=== PATIENT | female | born 1940 | race Caucasian/White ===

== ENCOUNTER 2021-09-02 06:52 | Outpatient (CLI) | payer MEDICARE, SELFPAY ==
--- NOTE | 2021-09-02 07:24 | MR_ITS ---
WS: [id number] MRI LUMBAR SPINE NONCONTRAST HISTORY: WEAKNESS COMPARISON: None available. TECHNIQUE: Sagittal and axial multisequence imaging is submitted. Marked increase in the cervical lordosis and thoracic kyphosis. Very mild anterior wedging of T6, T7, T8 and T9. Advanced degenerative disc disease throughout the cervical and thoracic spines. Mild RIGHT curvature thoracic spine. L4 anterolisthesis by 4 mm. 2 mm retrolisthesis of L1 and L2. No acute fractures or marrow edema. There is extensive degenerative disc disease with bulging and ost eophytosis throughout the lumbar spine with facet joint arthritis at multiple levels. Conus terminates normally at L1-2 disc level. T12-L1: Moderate annular disc bulging and osteophytic ridging. There is also facet joint arthritis. D egenerative changes are resulting in mild bilateral foraminal stenosis at the T11-12 and T12-L1 star stephie. L1-L2: Moderate diffuse annular disc bulging. Deformity of the ventral thecal sac with slight asymmet nestor bulging of the disc to the LEFT. Mild ligamentum flavum hypertrophy and facet arthritis. Mild jose tral stenosis with mild bilateral subarticular recess and foraminal stenosis. L2-L3: Diffuse asymmetric disc bulging. Severe bilateral ligamentum flavum arthritis and facet arthri tis with encroachment and deformity of the thecal sac. Severe central, bilateral lateral recess and R IGHT foraminal stenosis. Moderate LEFT foraminal stenosis. There is significant deformity and narrowi ng of the LEFT subarticular recess. L3-L4: Moderate annular disc bulging and osteophytic ridging. Shallow central disc protrusion with se roel bilateral ligamentum flavum and facet arthritis. Severe central and bilateral subarticular reces s stenosis with mild foraminal stenosis. L4-L5: Mild anterolisthesis of L4 relative tilting in unroofing of the disc. There is severe annular disc bulging with extruded disc extending cephalad from the disc level encroaching on the ventral the madhuri sac. There is significant deformity of the thecal sac. Severe central, bilateral subarticular rec ess stenosis and mild RIGHT foraminal stenosis. There is disc contacting and deforming the traversing L5 nerve roots and also contacting the exiting RIGHT L4 nerve root. Mild acute synovitis at the LEFT L4-5 facet joint. L5-S1: Mild disc bulging and osteophytic ridging. No thickened stenosis. There is very slight disc or osteophyte contact on the LEFT exiting L5 nerve root. Mild atherosclerosis aorta. LEFT renal cyst measures 1.6 cm. MR/MR lumbar spine wo con* [id number] IMPRESSION: 1. Severe degenerative changes throughout the lumbar spine with multiple level s of stenosis. 2. Severe central, bilateral subarticular recess and mild foraminal stenosis L 3-4 as described above. 3. Severe central, bilateral subarticular recess and mild RIGHT foraminal sten osis at L4-5. Significant contact and deformity of the L5 nerve roots and also mild contact on the RIGHT L4 nerve root. 4. Synovitis at the LEFT L4-5 facet joint. 5. Mild central, bilateral foraminal and subarticular recess stenosis at L1-2. 6. Severe central, bilateral lateral recess and RIGHT foraminal stenosis with moderate LEFT foraminal stenosis at L2-3. Significant encroachment into the LEF T subarticular recess.
== END 2021-09-02 06:53 | disposition home or self-care (01) ==
LOC: RADSHAW 07:01
PROVIDERS: PCP Family Medicine; Visit Provider Family Medicine
DX: R29.898 Other symptoms and signs involving the musculoskeletal system (principal); M47.16 Other spondylosis with myelopathy, lumbar region; R26.89 Other abnormalities of gait and mobility; M48.061 Spinal stenosis, lumbar region without neurogenic claudication; M65.88 Other synovitis and tenosynovitis, other site
CPT/HCPCS: 72148

== ENCOUNTER → 2021-09-15 09:30 | Outpatient (BNVA) | payer MEDICARE, SELFPAY | PROVIDERS: PCP Family Medicine; Referring Provider Family Medicine; Visit Provider Orthopaedic Surgery | DX: M54.50 Low back pain, unspecified (principal); M47.816 Spondylosis without myelopathy or radiculopathy, lumbar region; M51.36 Other intervertebral disc degeneration, lumbar region | CPT/HCPCS: 72110 ==

== ENCOUNTER → 2021-09-19 10:37 | Outpatient (BNVA) | payer MEDICARE, SELFPAY | PROVIDERS: PCP Family Medicine; Referring Provider Family Medicine; Visit Provider Anesthesiology Pain Medicine | DX: G89.29 Other chronic pain (principal); M47.816 Spondylosis without myelopathy or radiculopathy, lumbar region; M48.061 Spinal stenosis, lumbar region without neurogenic claudication; M54.16 Radiculopathy, lumbar region; M43.10 Spondylolisthesis, site unspecified; M79.604 Pain in right leg; M79.605 Pain in left leg; Z79.891 Long term (current) use of opiate analgesic | CPT/HCPCS: 99204 ==

== ENCOUNTER → 2021-09-21 13:25 | Outpatient (BNVA) | payer MEDICARE, SELFPAY | PROVIDERS: PCP Family Medicine; Visit Provider Anesthesiology Pain Medicine | DX: M54.16 Radiculopathy, lumbar region (principal); Z79.891 Long term (current) use of opiate analgesic | CPT/HCPCS: 64483; 64484; J1100; J3490 ==

== ENCOUNTER → 2021-10-03 09:10 | Outpatient (BNVA) | payer MEDICARE, SELFPAY | PROVIDERS: PCP Family Medicine; Visit Provider Orthopaedic Surgery | DX: Z01.818 Encounter for other preprocedural examination (principal); Z20.822 Contact with and (suspected) exposure to COVID-19 | CPT/HCPCS: 87635 ==

== ENCOUNTER 2021-10-07 09:39 | Day surgery (SDC) | payer MEDICARE, SELFPAY ==
[2021-10-03 10:05] VITALS: BMI 34.0
--- NOTE | 2021-10-03 10:05 | ECG_ITS ---
[facility] Test Date: 2021-10-03 Pat Name: Mireille Bentley Department: Room: Gender: Female Social Services Specialist: : 1940 Requested By: Terrance Iniguez Order Number: [id number] Reading MD: BEN EMMANUEL Measurements Intervals [place] Rate: 70 P: 36 SC: 181 QRS: -4 QRSD: 92 T: 4 QT: 364 QTc: 395 Interpretive Statements SINUS RHYTHM LOW QRS VOLTAGE IN PRECORDIAL LEADS [QRS DEFLECTION < 1.0 mV IN CHEST LEADS] INFERIOR MYOCARDIAL INFARCTION , PROBABLY OLD [40+ ms Q WAVE AND/OR ST/T ABNORMALITY IN II/aVF] No previous ECG available for comparison Electronically Signed On 10-03-2021 12:56:56 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
--- NOTE | 2021-10-03 14:53 | ANES.PREANE2 ---
Pre-Anesthetic Assessment Pre-Anesthetic Assessment: Height/Weight: Height 1.63 m Weight 89.811 kg Preop Diagnosis: Lumbar Stenosis Proposed Procedure: Operation Date: 10/07/21 09:30 Proposed Procedures p Lumbar Spine Decompression L3/4 23525 M48.062(Not Applicable) - Weston Stubbs, DO Was Beta Ruth taken within 24 hours: N/A Was Clonidine taken within 24 hours: N/A Social: Social History: No alcohol and No tobacco Exam: Pre-Anes Outpt Exam: alert, oriented x 3 and regular rate & rhythm Airway: Submandibular: WNL Cervical ROM: WNL MP: 2 Dentition: False Pulmonary: Pulmonary: COPD Comments: chronic steroid CV/HEM: CV/HEM: HTN Metabolic: Metabolic: Morbid obesity Musc/skel: Musc/skel: Lower Back Pain Anesthetic Plan: ASA status: 3 Anesthesia: General Other: SOB in PACU --sugamadex Risk of > 500 ml blood loss (7ml/kg in children): No PFSH Anesthesia PFSH: Social History Alcohol intake: never Caregiver/support person: Yes Lives independently: Yes History of recent travel: No Data Anesthesia Cardiac Studies: No Data to Display
[2021-10-07] VITALS (8 sets, daily range): BP systolic 130–178; BP diastolic 68–96; PULSE 78–109; RESP 15–23; TEMP 36.6–36.8; O2SAT 94–100
--- NOTE | 2021-10-07 | SCC_ITS ---
Procedure Done: 1. Bilateral L4/5 laminectomy with partial facetectomies 14.7 seconds of fluoroscopic guidance, for a cumulative dose of 6.44 mGy, was provided to Dr. Stubbs by the radiology department. C-arm images of the lumbar spine were saved for the patient's permanent record. [facility]
--- NOTE | 2021-10-07 | XR_ITS ---
WS: [id number] Exam: XR lumbar spine 1V [id number] Date/Time of Exam: 10/07/2021 12:00 AM Reason For Exam: Bilateral L4/5 laminectomy with partial facetectomies A single intraoperative AP C-arm image of the lower lumbar spine is submitted for evaluation. A port is positioned over the L4-5 disc level. No other significant finding on this limited image.
[2021-10-07] MEDS: sodium chloride 0.9% 1,000 ML 30 ML IV (10:40)
--- NOTE | 2021-10-07 13:49 | P.ANESUD_ITS ---
Pre-Anesthetic Update Pre-Anesthetic Assessment: Date of Surgery/Procedure: 10/07/21 Preop Gaby gnosis: Lumbar Stenosis Proposed Procedure: Operation Date: 10/07/21 11:10 Proposed Procedures p Lumbar Spine Decompression L3/4 52131 M48.062(Not Applicable) - Weston Stubbs, DO Any changes to Pre-Anesthetic Assessment?: No Last Intake: Intake Last Liquid Date 10/06/21 Last Liquid Time 22:00 Last Solid Date 10/06/21 Last Solid Time 22:00 Vitals: Temperature 98.2 F 10/07/21 10:31 Temperature Source Temporal Artery S can 10/07/21 10:31 Pulse Rate 78 10/07/21 10:31 Pulse Rhythm 10/07/21 10:10 Respiratory Rate 16 10/07/21 10:31 Blood Pressure 178/84 10/07/21 10:31 Blood Pressure Filomena n 115 10/07/21 10:31 Pulse Oximetry 95 10/07/21 10:31 Oxygen Delivery Me thod 10/07/21 10:31 Exam: Pre-Anes Outpt Exam: alert, oriented x 3, clear to auscultation bilaterally and regular rate & rhythm Cardiac Studies: No Data to Display
[2021-10-07] MEDS: HYDROmorphone 1 mg/mL INJ 1 mL 0.5 MG IVP (14:03)
--- NOTE | 2021-10-07 14:17 | W.PM.OPSUD ---
Surgery/Procedure H&P Update DATE OF PROCEDURE: October 07, 2021 DATE H&P PERFORMED: 09/15/21 H&P UPDATE INFORMATION: I have reviewed H&P completed within last 30 days, I have examined patient prior to procedure and No changes to prior documentation PREOP DIAGNOSIS: Lumbar Stenosis PLANNED PROCEDURE: Operation Date: 10/07/21 11:10 Proposed Procedures p Lumbar Spine Decompression L3/4 78786 M48.062(Not Applicable) - Weston Stubbs DO
--- NOTE | 2021-10-07 16:00 | P.PCN_ITS ---
Documented by User: Wojciech Shelley CRNA 10/07/21 16:02 PACU note PACU note: VSS, Good respiratory effort, report to PIER HAND HELPER Post-Anesthesia Exam: awake
--- NOTE | 2021-10-07 16:00 | PM.PACU ---
Documented by User: Wojciech Shelley CRNA 10/07/21 16:02 PACU note PACU note: VSS, Good respiratory effort, report to [employer] ECONOMIST Post-Anesthesia Exam: awake
--- NOTE | 2021-10-07 16:07 | PM.OP ---
Operative Report Date of procedure: October 07, 2021 Pre-op Diagnosis: Lumbar Stenosis with neurogenic claudication Post-op diagnosis: same Procedure Done: 1. Bilateral L4/5 laminectomy with partial facetectomies Anesthesia: General Estimated blood loss (mL): 5 Condition: stable Disposition: PACU Procedure: 1. Bilateral L4/5 laminectomy with partial facetectomies Patient is brought to the operative suite. After undergoing anesthesia they are placed in the prone position. All areas of impingement are well padded. Patient is then prepped and draped in the normal sterile fashion. A skin incision is made over the L4/5 level. This is confirmed under c-arm guidance. A series of dilators are passed and the tubular retractor is docked on the L4 lamina. A bovie is used to clear the soft tissue off the lamina and the L 4/5 facet joint. A high speed jono is then used to perform the laminectomy and take down the medial aspect of the L 4/5 facet joint. A kerrison rongeure was then used to take down the remaining lamina and smooth the edged of the laminectomy up to the point where the ligamentum flavum attaches. Attention was then brought to the medial aspect of the facet joint. The remaining medial aspect of the superior and inferior aspect of the facet joint were taken down with the kerrison from the pedicle of L4 to L 5. The facet joint had significant hypertrophy. Attention was then brought to the Ligamentum Flavum. The ligament was taken down from the lamina of L4 to L5 and out medially to the remaining facet joint. The ligament was thick. The dura was then exposed. The dura was in good repair. The L4 nerve was then traced with a curette out the L4/5 foramen and found to be adequately decompressed. The L5 nerve was traced with a curette around the L5 pedicle. The lateral recess was opened with a kerrison helping to further decompress the L5 nerve. The tubular retractor was then tilted to the contralateral side. The bovie was used to take down the soft tissue on the spinous process. The high speed jono was used to take down the spinous process and then the contralateral lamina of L4. The kerrison rongeur was used to take down the remaining lamina to the point where the ligamentum flavum attached and the ligamentum flavum was taken down from L4 to L5. The kerrison rongeur was then used to reach across and take down the medial aspect of the contralateral L4/5 facet joint.The currete was used to trace the contralateral L4 nerve out the L4/5 foramen to make sure it was decompressed adequatesly and the L5 was traced around the L5 pedicle. The lateral recess was opened further with the kerrison to ensure the L5 is adequately decompressed. Wound is then irrigated copiously with saline and surgiflo is used to stop any bleeding. The tubular retractor is removed and the wound is closed with vicryl and monocryl suture. Glue is then used to protect the wound. A sterile dressing is then placed. Patient was then placed in the supine position and transferred to the PACU in stable condition.
--- NOTE | 2021-10-07 16:15 | ANE.PACU2 ---
Inpatient post-anesthesia follow up: Airway intact: Yes Vital signs: Temperature 98.2 F Pulse Rate 78 Respiratory Rate 16 Blood Pressure 178/84 Pulse Oximetry 95 Oxygen Delivery Me thod Room Air Oxygen Flow Rate Fraction of Inspir ed Oxygen Hydration adequate: Yes Nausea and vomiting: No Pain level: 2 Mental status: Baseline
--- NOTE | 2021-10-07 16:33 | SUR.PHASEI ---
1623 PT AWAKE ALERT TALKATIVE TAKING ICE CHIPS , PT VERBALLLY DENIES PAIN AND NAUSEA, PT MOVES BILAT FEET STRONGLY AND TO COMMAND, IV PATENT , PT LOG ROLLED TO SIDE WITH MINIMAL ASSIST, DRESSING TO LOWER BACK D/I PT TO OPS HANDOFF AT BEDSIDE.
[2021-10-07] MEDS: HYDROcodone-acetaminophen 5-325 mg Tablet 1 TAB PO (16:40)
[2021-10-07] MEDS: cetylpyridinium Lozenge 1 EACH MUCOUS MEM (16:41)
== END 2021-10-07 17:30 | disposition home or self-care (01) ==
PROVIDERS: PCP Family Medicine; Visit Provider Orthopaedic Surgery
PROC: (CPT 63005; principal; 2021-10-07 11:10)
DX: M48.062 Spinal stenosis, lumbar region with neurogenic claudication (principal); J44.9 Chronic obstructive pulmonary disease, unspecified; I10 Essential (primary) hypertension; E66.01 Morbid (severe) obesity due to excess calories; Z68.34 Body mass index [BMI] 34.0-34.9, adult; Z79.51 Long term (current) use of inhaled steroids
CPT/HCPCS: 63047; 72020; 76000; 93005; J0690; J1100; J1170; J2405; J2704; J3010; J3490; J7030

== ENCOUNTER 2021-10-11 18:58 | Observation (INO) | payer MEDICARE, SELFPAY ==
[2021-10-11 19:02] VITALS: BP 157/82; PULSE 89; RESP 18; TEMP 37.2; O2SAT 95; BMI 33.5
--- NOTE | 2021-10-11 19:21 | ED_ITS ---
HPI - Back Pain/Injury General: Chief Complaint: Back Pain/Injury Stated Complaint: BACK PAIN Time Seen by Provider: 10/11/21 18:59 Source: patient and EMS Mode of arrival: EMS Limitations: no limitations History of Present Illness: HPI Narrative: 81-year-old female who had back surgery on Sunday states that she been having increasing pain at home since the surgery family states that she is unable to stand or take care of her self they state they cannot take care of her anymore she is also having difficulty with bowel movements and feels quite constipation due to her pain meds she states that her back pain currently is a 7 out of 10 denies any bowel or bladder incontinence denies any falls or injuries denies any fevers Associated symptoms: Deny abdominal pain, chills, dysuria, fever(s), nausea or vomiting Review of Systems Const: Denies: fever(s), chills, body aches or change in appetite Eyes: Denies: blurry vision or eye discomfort ENMT: Denies: throat pain or dental pain Card: Denies: chest pain Resp: Denies: dyspnea GI: Denies: abdominal pain, nausea, vomiting or diarrhea : Denies: dysuria Musc: Reports: back pain Skin/Breast: Denies: rash Neuro: Denies: headache(s) Psych: Denies: depression Geoff/Lymph: Denies: easy bruising All/Imm: Denies: urticaria PFSH ED PFSH: Medical History (Updated 10/12/21 @ 01:05 by Negrita Lambert MD) BMI 33.0-33.9,adult COPD (chronic obstructive pulmonary disease) Hypertension Surgical History (Updated 10/12/21 @ 01:05 by Negrita Lambert MD) H/O foot surgery with artificial great toe H/O: hysterectomy History of bilateral knee replacement History of bladder surgery History of hemorrhoidectomy S/P laminectomy (10/07/21) bilateral L4/L5 with partial facetectomies, Dr Stubbs Social History Alcohol intake: never Caregiver/support person: Yes Lives independently: Yes History of recent travel: No Physical Exam Const: COMMON NORMALS: no acute distress, patient oriented x3 and healthy appearing HENMT: COMMON NORMALS: normocephalic and atraumatic HEAD & SCALP: normocephalic and atraumatic Eye: COMMON NORMALS: Equal, round and reactive pupils present and EOMs intact bilaterally PUPIL: Yes Equal, round and reactive pupils present Neck/C-Spine: COMMON NORMALS: full ROM and supple Chest: COMMONS NORMALS: normal inspection of the chest and normal palpation of entire chest wall Resp: COMMON NORMALS: normal respiratory effort, No retractions, No use of accessory muscles and clear to auscultation bilaterally AUSCULTATION: clear to auscultation bilaterally Cardio: COMMON NORMALS: regular rate, regular rhythm and No murmurs present (Cardio) RATE: regular rate RHYTHM: regular rhythm GI: COMMON NORMALS: Normal to inspection, nondistended, normoactive bowel sounds present, Soft to palpation, non-tender and no masses PALPATION: Yes Soft to palpation Back/Pelvis: OTHER: No saddle anesthesia incisions clean dry and intact no leg weakness Extremity: COMMON NORMALS: normal to inspection and full ROM Neuro: COMMON NORMALS: patient oriented x3, moves all extremities and no focal motor deficits Psych: COMMON NORMALS: mental status grossly normal, Normal thought process present and cooperative THOUGHT PROCESS: Normal thought process present Skin: COMMON NORMALS: no rashes or lesions noted and no wounds GENERAL SKIN EXAM: no rashes or lesions noted Course Vital Signs: Vital signs: Vital Signs Temperature 99 F 10/11/21 19:02 Pulse Rate 89 10/11/21 23:57 Respiratory Rate 17 10/11/21 23:57 Blood Pressure 145/82 10/11/21 23:57 Pulse Oximetry 92 10/11/21 23:57 MDM - Back Pain/Injury MDM Narrative: Medical decision making narrative: Patient presents here with back pain difficulty walking along with fecal impaction constipation patient did have back surgery on Sunday impaction the constipation is likely due to the pain meds. Family states they are not able to take care of her due to her pain level not being able to get her to move. I spoke to the hospitalist will admit for her weakness along with her back pain and constipation Lab Data: Labs: Lab Results 10/11/21 10/11/21 19:51 19:51 WBC 8.8 10^3/uL 10^3/ uL (4.0-10.0) RBC 3.86 10^6/uL L 10 ^6/uL (4.1-5.3) Hgb 11.1 g/dL L g/dL (11.5-15.3) Hct 35.5 % L % (37.0-47.0) MCV 92.0 fl fl (81-99) MCH 28.8 pg pg (28.0-34.0) MCHC 31.3 g/dL g/dL (30.0-36.0) RDW 13.4 % % (12.1-15.1) Plt Count 318 10^3/cmm 10^3 /cmm (130-400) MPV 9.1 fL fL (7.4-10.4) Neut % (Auto) 75.2 % % Lymph % (Auto) 16.0 % % [place] % (Auto) 6.8 % % Eos % (Auto) 1.3 % % Baso % (Auto) 0.2 % % Neut # (Auto) 6.59 10^3/uL 10^3 /uL (1.8-7.7) Lymph # (Auto) 1.4 10^3/uL 10^3/ uL (0.8-4.8) [place] # (Auto) 0.6 10^3/uL 10^3/ uL (0.2-0.9) Eos # (Auto) 0.1 10^3/uL 10^3/ uL (0.0-0.8) Baso # (Auto) 0.0 10^3/uL 10^3/ uL (0.0-0.1) Nucleated RBC % (a uto) 0 % % Nucleated RBCs # 0.0 /100WBC /100W BC Sodium 132 mmol/L L mmol /L (136-145) Potassium 4.0 mmol/L mmol/L (3.5-5.1) Chloride 96 mmol/L L mmol/ L (98-107) Carbon Dioxide 24 mmol/L mmol/L (22-29) Anion Gap 16.0 (5-19) BUN 9 mg/dL mg/dL (8-23) Creatinine 0.4 mg/dL L mg/dL (0.5-0.9) GFR Calculation Not Reportable Glucose 113 mg/dL mg/dL (65-115) Calculated Osmolal ity 273 mOsm/kg L mOs m/kg (285-295) Calcium 8.3 mg/dL L mg/dL (8.5-10.5) Total Bilirubin 0.5 mg/dL mg/dL (0.15-1.2) AST 21 U/L U/L (0-32) ALT 25 U/L U/L (0-33) Alkaline Phosphata se 89 IU/L IU/L (35-105) Total Protein 6.5 g/dL L g/dL (6.6-8.7) Albumin 3.5 g/dL g/dL (3.5-5.2) Globulin 3.0 g/dL g/dL (1.3-4.6) Imaging Data^: CT Abd/Pel: Attestation: I personally reviewed and interpreted this imaging study as follows: Radiologist's impression: [address] [facility] [place] [place] [address] CT Scan Report Signed Patient: Mireille Bentley Unit #: [id number] : [id number] Age/Sex: 81 / F ADM Date: 10/11/21 Loc: ER Room/Bed: Attending Dr: Ordering Provider/Ordering MD: Dotty Gamble MD Date of Service: 10/11/21 Procedure(s): CT abdomen pelvis w con* [id number] Accession Number(s): [id number] Report Number: [id number] PROCEDURE INFORMATION: Exam: CT Abdomen And Pelvis With Contrast Exam date and time: 10/11/2021 8:29 PM Age: 81 years old Clinical indication: Abdominal pain; Localized; Prior surgery; Surgery type: Gb. Hysterectomy. Bladder sling. ; Patient HX: Lower abd/back pain with constipation. ; Additional info: Abd pain/ back pain TECHNIQUE: Imaging protocol: Computed tomography of the abdomen and pelvis with contrast. Total images: 265 Radiation optimization: All CT scans at this facility use at least one of these dose optimization techniques: automated exposure control; mA and/or kV adjustment per patient size (includes targeted exams where dose is matched to clinical indication); or iterative reconstruction. Contrast material: OMNI 300; Contrast volume: 95 ml; Contrast route: INTRAVENOUS (IV); COMPARISON: CR Hip 2-3v RIGHT wwo Pelv* [id number] 08/22/2021 2:08 PM RADIATION DOSE METRICS: Total DLP (mGy-cm): 1869.38 FINDINGS: Pleural spaces: Rare subtle subpleural pulmonary nodule within the visualized lung bases all well under 5 mm. No other evidence of active interstitial or alveolar airspace disease. Liver: Hepatomegaly. No visible hepatic mass or cystic structure. Gallbladder and bile ducts: Status post cholecystectomy. Pancreas: Pancreas is unremarkable. No visible pancreatic ductal ectasia. Spleen: Spleen unremarkable. Adrenal glands: Small right adrenal nodule measuring approximately 14 mm. Left adrenal gland unremarkable. Kidneys and ureters: No hydronephrosis or perinephric fluid. No visible nephrolithiasis. Two small simple renal cortical cysts left kidney. No follow-up recommended. Stomach and bowel: Large rectocele. Fecal impaction. Moderate fecal residue of constipation. Nonobstructive bowel pattern. Mild colonic ileus. No small bowel ileus. Appendix: The appendix is visualized and appears noninflamed.. Tiny appendicolith. Intraperitoneal space: No visible pneumoperitoneum or intraperitoneal ascites. Vasculature: Portal vein patent. The abdominal aorta is nonaneurysmal. Mild arteriosclerosis. Lymph nodes: Unremarkable. No enlarged lymph nodes. Urinary bladder: Distended urinary bladder. No filling defect. Reproductive: Status post hysterectomy. Bones/joints: No visible acute osseous abnormality. Advanced degenerative disease and degenerative disc disease of the lumbosacral spine. Spondylosis deformans. Facet arthrosis. Soft tissues: Small pockets of soft tissue subcutaneous emphysema dorsal surface of the back just right of midline at the L3/L4 level. No associated loculated fluid collection to suggest the presence of a hematoma, seroma, or abscess. Clinical significance indeterminate. Marked obesity. CT/CT abdomen pelvis w con* [id number] IMPRESSION: 1. No visible acute abdominal or pelvic pathologic process. 2. Large rectocele. 3. Fecal impaction. Moderate fecal residue of constipation. 4. Mild colonic ileus. 5. Hepatomegaly. 6. Small right adrenal nodule measuring approximately 14 mm. Consider 12 month follow-up adrenal CT. (Reference: Issac). 7. Rare subtle subpleural pulmonary nodule within the visualized lung bases all well under 5 mm. For patients at low risk (minimal or absent history of smoking and of other known risk factors), no routine follow-up is indicated. For patients at high risk (history of smoking or of other known risk factors), consider optional CT Chest at 12 months. (Reference: Roberto). COMMENTS: Consistent with the [employer]'s Incidental Findings Committee white paper (J Am Kaylen Radiol 2018): Any incidental renal lesion less than 1 cm or classified as too small to characterize, or any incidental cystic renal lesion characterized as simple-appearing, is likely benign. No follow-up imaging is recommended for these lesions per consensus recommendations based on imaging criteria. REFERENCES: 1. Roberto Glass, et al. Guidelines for Management of Incidental Pulmonary Nodules Detected on CT Images: From the Fleischner Society 2017. Radiology. 2017;284(1):228-243. 2. Issac CRAWFORD et al. Management of Incidental Adrenal Masses: A White Paper of the ACR Incidental Findings Committee. J Am Kaylen Radiol. 2017;14(8):6418-9160. Dictated By: Gm Pritchett Signed By: Gm Pritchett Signed Date/Time: 10/11/212213 DD/ 28 Discharge Plan Discharge Patient Disposition: Admitted As Inpatient Clinical Impression: Fecal impaction, S/P laminectomy Condition: Stable Coding Level of Care Code ED Interface Control Officer for Chg Fwd Exam Comprehensive
[2021-10-11] MEDS: dexamethasone 10 mg/mL INJ IVP (19:42)
[2021-10-11 19:43] VITALS: RESP 18
[2021-10-11] MEDS: ondansetron 2 mg/ML SDV 2 mL 4 MG IVP (19:43)
[2021-10-11] MEDS: HYDROmorphone 1 mg/mL INJ 1 mL IVP (19:43)
[2021-10-11 20:00] LABS: Basophils % 0.2 %; Eosinophils # 0.1 10^3/uL (0.0-0.8); Eosinophils % 1.3 %; Hematocrit 35.5 % (37.0-47.0); Hemoglobin 11.1 g/dL (11.5-15.3); Lymphocytes # 1.4 10^3/uL (0.8-4.8); Mean Corpuscular HGB Conc 31.3 g/dL (30.0-36.0); Mean Corpuscular Hemoglobin 28.8 pg (28.0-34.0); Mean Platelet Volume 9.1 fL (7.4-10.4); Monocytes # 0.6 10^3/uL (0.2-0.9); Monocytes % 6.8 %; Neutrophils # 6.59 10^3/uL (1.8-7.7); Neutrophils % 75.2 %; Nucleated Red Blood Cells % 0 %; Platelet Count 318 10^3/cmm (130-400); Red Blood Count 3.86 10^6/uL (4.1-5.3); Red Cell Distribution Width 13.4 % (12.1-15.1); White Blood Count 8.8 10^3/uL (4.0-10.0)
--- NOTE | 2021-10-11 20:29 | CTR_ITS ---
PROCEDURE INFORMATION: Exam: CT Abdomen And Pelvis With Contrast Exam date and time: 10/11/2021 8:29 PM Age: 81 years old Clinical indication: Abdominal pain; Localized; Prior surgery; Surgery type: Gb. Hysterectomy. Bladder sling. ; Patient HX: Lower abd/back pain with constipation. ; Additional info: Abd pain/ back pain TECHNIQUE: Imaging protocol: Computed tomography of the abdomen and pelvis with contrast. Total images: 265 Radiation optimization: All CT scans at this facility use at least one of these dose optimization techniques: automated exposure control; mA and/or kV adjustment per patient size (includes targeted exams where dose is matched to clinical indication); or iterative reconstruction. Contrast material: OMNI 300; Contrast volume: 95 ml; Contrast route: INTRAVENOUS (IV); COMPARISON: CR Hip 2-3v RIGHT wwo Pelv* [id number] 08/22/2021 2:08 PM RADIATION DOSE METRICS: Total DLP (mGy-cm): 1869.38 FINDINGS: Pleural spaces: Rare subtle subpleural pulmonary nodule within the visualized lung bases all well under 5 mm. No other evidence of active interstitial or alveolar airspace disease. Liver: Hepatomegaly. No visible hepatic mass or cystic structure. Gallbladder and bile ducts: Status post cholecystectomy. Pancreas: Pancreas is unremarkable. No visible pancreatic ductal ectasia. Spleen: Spleen unremarkable. Adrenal glands: Small right adrenal nodule measuring approximately 14 mm. Left adrenal gland unremarkable. Kidneys and ureters: No hydronephrosis or perinephric fluid. No visible nephrolithiasis. Two small simple renal cortical cysts left kidney. No follow-up recommended. Stomach and bowel: Large rectocele. Fecal impaction. Moderate fecal residue of constipation. Nonobstructive bowel pattern. Mild colonic ileus. No small bowel ileus. Appendix: The appendix is visualized and appears noninflamed.. Tiny appendicolith. Intraperitoneal space: No visible pneumoperitoneum or intraperitoneal ascites. Vasculature: Portal vein patent. The abdominal aorta is nonaneurysmal. Mild arteriosclerosis. Lymph nodes: Unremarkable. No enlarged lymph nodes. Urinary bladder: Distended urinary bladder. No filling defect. Reproductive: Status post hysterectomy. Bones/joints: No visible acute osseous abnormality. Advanced degenerative disease and degenerative disc disease of the lumbosacral spine. Spondylosis deformans. Facet arthrosis. Soft tissues: Small pockets of soft tissue subcutaneous emphysema dorsal surface of the back just right of midline at the L3/L4 level. No associated loculated fluid collection to suggest the presence of a hematoma, seroma, or abscess. Clinical significance indeterminate. Marked obesity. CT/CT abdomen pelvis w con* [id number] IMPRESSION: 1. No visible acute abdominal or pelvic pathologic process. 2. Large rectocele. 3. Fecal impaction. Moderate fecal residue of constipation. 4. Mild colonic ileus. 5. Hepatomegaly. 6. Small right adrenal nodule measuring approximately 14 mm. Consider 12 month follow-up adrenal CT. (Reference: Issac). 7. Rare subtle subpleural pulmonary nodule within the visualized lung bases all well under 5 mm. For patients at low risk (minimal or absent history of smoking and of other known risk factors), no routine follow-up is indicated. For patients at high risk (history of smoking or of other known risk factors), consider optional CT Chest at 12 months. (Reference: Roberto). COMMENTS: Consistent with the [employer]'s Incidental Findings Committee white paper (J Am Kaylen Radiol 2018): Any incidental renal lesion less than 1 cm or classified as too small to characterize, or any incidental cystic renal lesion characterized as simple-appearing, is likely benign. No follow-up imaging is recommended for these lesions per consensus recommendations based on imaging criteria. REFERENCES: 1. Roberto H, et al. Guidelines for Management of Incidental Pulmonary Nodules Detected on CT Images: From the Fleischner Society 2017. Radiology. 2017;284(1):228-243. 2. Issac CRAWFORD, et al. Management of Incidental Adrenal Masses: A White Paper of the ACR Incidental Findings Committee. J Am Kaylen Radiol. 2017;14(8):1023-6799.
[2021-10-11 20:32] LABS: Alanine Aminotransferase 25 U/L (0-33); Albumin Level 3.5 g/dL (3.5-5.2); Alkaline Phosphatase 89 IU/L (35-105); Aspartate Amino Transferase 21 U/L (0-32); Blood Urea Nitrogen 9 mg/dL (8-23); Calcium 8.3 mg/dL (8.5-10.5); Carbon Dioxide 24 mmol/L (22-29); Chloride 96 mmol/L (98-107); Glucose 113 mg/dL (65-115); Osmolality Calculated 273 mOsm/kg (285-295); Sodium 132 mmol/L (136-145); Total Bilirubin 0.5 mg/dL (0.15-1.2); Total Protein 6.5 g/dL (6.6-8.7)
[2021-10-11] MEDS: iohexol 300 mg/mL 100 mL Btl IV (21:02)
[2021-10-11] MEDS: lactulose oral liq 20 gm/30 mL UDC 30 GM PO (22:25)
--- NOTE | 2021-10-11 23:40 | PM.HP ---
Providers/Chief Complaint Admitting Physician: Negrita Lambert MD Primary Care Provider: Eugenio Rushing Chief Complaint: BACK PAIN History of Present Illness Mireille Bentley is a 81 year old female who presented to the emergency room with chief complaint of being unable to walk and be cared for appropriately at home since she had back surgery last week. She underwent L4-L5 laminectomy with partial facetectomy by Dr. Stubbs on October 07. Since that time she has had difficulty managing her pain. Prior to surgery she had issues with her right lower extremity but now reports that she has severe pain in her low back that radiates down her left leg. She has been taking hydrocodone 1 to 2 tablets every 4-6 hours as well as tramadol every 4-6 hours alternating. She did up her usual laxative therapy from 50 mg of docusate daily to 2 tablets daily. Despite this she has not had a good bowel movement since she came home. She has had some urinary frequency but no dysuria. She denies any fever or chills. She is not been resting due to pain. Her family has been trying to assist her in her care but have been unable to get her any relief and move her around much. She has only walked a small amount since surgery. They came into the emergency room for further evaluation. Work-up revealed fecal impaction with associated reducible rectocele. Patient had some manual disimpaction in the emergency room and received lactulose both resulting in stool output but continued to have palpable stool in the rectal vault. Request was made for observation admission. In addition to this family does not feel that they are able to care for her adequately in the home setting due to the degree of postoperative pain and difficulty ambulating that she has experienced. She denies any chest pain or difficulty breathing. Pain is worse currently than prior to surgery. In talking with her she had been doing well prior to the onset suddenly of back pain a couple of months ago. She had been going to pulmonary rehab for her COPD for 2-1/2 years minus the time she was not able to go due to COVID restrictions. She says she woke up 1 day limited in what she could do. She has done physical therapy, had a course of outpatient oral steroids as well as some outpatient injections to help with the pain and ultimately ended up having surgical intervention by Dr. Stubbs. She denies any numbness lower extremities, primarily complaining of pain. No new loss of bowel or bladder function beyond the constipation described reported. 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 Of note patient was prescribed Flexeril on October 11 but has not yet filled prescription or taken it. Review of Systems Const: Denies: fever(s) or chills ENMT: Denies: throat pain or nasal congestion Card: Denies: chest pain, palpitations or edema Resp: Denies: dyspnea, productive cough or non-productive cough GI: Reports: abdominal pain, nausea and constipation; Denies: vomiting or diarrhea : Reports: urinary frequency; Denies: dysuria Musc: Reports: back pain and extremity pain Skin/Breast: Reports: surgical incision (Healing well); Denies: rash or sores Neuro: Reports: weakness in extremities and difficulty walking; Denies: headache(s) or numbness in extremities Psych: Reports: anxiety; Denies: depression Geoff/Lymph: Denies: easy bruising or easy bleeding Medications/Allergies Home Medications Medication Instructions Recorded Confirmed Last Taken Type docusate sodium 50 mg capsule 100 mg PO DAILY 09/15/21 10/12/21 10/11/21 History tramadol 50 mg tablet 50 mg PO Q4H PRN 09/15/21 10/12/21 10/11/21 History fluticasone furoate 200 1 inh INHALATION DAILY 09/19/21 10/12/21 10/11/21 History mcg-vilanterol 25 mcg/dose inhalation powder lisinopril 20 mg tablet 20 mg PO BID 09/19/21 10/12/21 10/11/21 History cyclobenzaprine 5 mg tablet 5 mg PO TID PRN #42 tab 10/11/21 10/12/21 Unknown Rx albuterol sulfate [Ventolin HFA] 2 puff INHALATION QID PRN 10/12/21 10/12/21 Unknown History hydrocodone-acetaminophen 1 - 2 tab PO Q4H PRN 10/12/21 10/12/21 10/11/21 History Allergies Allergy/AdvReac Type Severity Reaction Status Date / Time meclizine [From Antivert] Allergy ALGY-Rash Verified 10/11/21 19:12 PFSH Acute PFSH: Medical History (Updated 10/12/21 @ 05:30 by Negrita Lambert MD) BMI 33.0-33.9,adult COPD (chronic obstructive pulmonary disease) Hypertension Surgical History (Updated 10/12/21 @ 01:05 by Negrita Lambert MD) H/O foot surgery with artificial great toe H/O: hysterectomy History of bilateral knee replacement History of bladder surgery History of hemorrhoidectomy S/P laminectomy (10/07/21) bilateral L4/L5 with partial facetectomies, Dr Stubbs Family History (Updated 10/12/21 @ 05:15 by Negrita Lambert MD) Other Hypertension Social History (Updated 10/12/21 @ 05:15 by Negrita Lambert MD) Smoking and tobacco status: former smoker Alcohol intake: never Substance/Drug Use: never Caregiver/support person: Yes Lives independently: Yes Vitals/I&O/Wt Last Vital Signs Temp 99 F 10/11/21 19:02 Pulse 89 10/11/21 19:02 Resp 18 10/11/21 19:43 BP 157/82 10/11/21 19:02 Pulse Ox 95 10/11/21 19:02 Weight last 48 hrs Weight 88.451 kg Physical Exam Narrative: EXAM NARRATIVE: Constitutional: Awake and alert, uncomfortable appearing, obese HEENT: Left sclera with some injection, extraocular movements intact, nasopharynx is clear, oropharynx with moist mucous membranes, dentures noted, normocephalic Neck: Large but supple Respiratory: Clear to auscultation bilaterally Cardiovascular: Regular rhythm Abdomen: Soft, mild distention but nontender, positive bowel sounds, rectocele currently reduced Extremities: Surgical incision site looks intact, tenderness in the center of the back around surgical incision site and laterally into the musculature, tenderness at both lower extremities which improves with position changes, some deformity of the feet, mild from prior surgery and congenital bone changes, flat feet Skin: Dry, no rashes Neuro: Speech clear, handgrip equal, foot pump is slightly weaker right lower extremity than left lower extremity, sensation is intact at both feet and equal Psych: Normal affect, worried about current condition Data : 10/11/21 19:51 10/11/21 19:51 Other Labs: Laboratory Results WBC 8.8 10^3/uL (4.0-10.0) 10/11/21 19:51 RBC 3.86 10^6/uL (4.1-5.3) L 10/11/21 19:51 Hgb 11.1 g/dL (11.5-15.3) L 10/11/21 19:51 Hct 35.5 % (37.0-47.0) L 10/11/21 19:51 MCV 92.0 fl (81-99) 10/11/21 19:51 MCH 28.8 pg (28.0-34.0) 10/11/21 19:51 MCHC 31.3 g/dL (30.0-36.0) 10/11/21 19:51 RDW 13.4 % (12.1-15.1) 10/11/21 19:51 Plt Count 318 10^3/cmm (130-400) 10/11/21 19:51 MPV 9.1 fL (7.4-10.4) 10/11/21 19:51 Neut % (Auto) 75.2 % 10/11/21 19:51 Lymph % (Auto) 16.0 % 10/11/21 19:51 [place] % (Auto) 6.8 % 10/11/21 19:51 Eos % (Auto) 1.3 % 10/11/21 19:51 Baso % (Auto) 0.2 % 10/11/21 19:51 Neut # (Auto) 6.59 10^3/uL (1.8-7.7) 10/11/21 19:51 Lymph # (Auto) 1.4 10^3/uL (0.8-4.8) 10/11/21 19:51 [place] # (Auto) 0.6 10^3/uL (0.2-0.9) 10/11/21 19:51 Eos # (Auto) 0.1 10^3/uL (0.0-0.8) 10/11/21 19:51 Baso # (Auto) 0.0 10^3/uL (0.0-0.1) 10/11/21 19:51 Nucleated RBC % (auto) 0 % 10/11/21 19:51 Nucleated RBCs # 0.0 /100WBC 10/11/21 19:51 Sodium 132 mmol/L (136-145) L 10/11/21 19:51 Potassium 4.0 mmol/L (3.5-5.1) 10/11/21 19:51 Chloride 96 mmol/L (98-107) L 10/11/21 19:51 Carbon Dioxide 24 mmol/L (22-29) 10/11/21 19:51 Anion Gap 16.0 (5-19) 10/11/21 19:51 BUN 9 mg/dL (8-23) 10/11/21 19:51 Creatinine 0.4 mg/dL (0.5-0.9) L 10/11/21 19:51 GFR Calculation Not Reportable 10/11/21 19:51 Glucose 113 mg/dL (65-115) 10/11/21 19:51 Calculated Osmolality 273 mOsm/kg (285-295) L 10/11/21 19:51 Calcium 8.3 mg/dL (8.5-10.5) L 10/11/21 19:51 Total Bilirubin 0.5 mg/dL (0.15-1.2) 10/11/21 19:51 AST 21 U/L (0-32) 10/11/21 19:51 ALT 25 U/L (0-33) 10/11/21 19:51 Alkaline Phosphatase 89 IU/L (35-105) 10/11/21 19:51 Total Protein 6.5 g/dL (6.6-8.7) L 10/11/21 19:51 Albumin 3.5 g/dL (3.5-5.2) 10/11/21 19:51 Globulin 3.0 g/dL (1.3-4.6) 10/11/21 19:51 Impressions Abdomen/Pelvis CT 10/11/21 20:29 IMPRESSION: 1. No visible acute abdominal or pelvic pathologic process. 2. Large rectocele. 3. Fecal impaction. Moderate fecal residue of constipation. 4. Mild colonic ileus. 5. Hepatomegaly. 6. Small right adrenal nodule measuring approximately 14 mm. Consider 12 month follow-up adrenal CT. (Reference: DriftonEvan). 7. Rare subtle subpleural pulmonary nodule within the visualized lung bases all well under 5 mm. For patients at low risk (minimal or absent history of smoking and of other known risk factors), no routine follow-up is indicated. For patients at high risk (history of smoking or of other known risk factors), consider optional CT Chest at 12 months. (Reference: Roberto). COMMENTS: Consistent with the [employer]'s Incidental Findings Committee white paper (J Am Kaylen Radiol 2018): Any incidental renal lesion less than 1 cm or classified as too small to characterize, or any incidental cystic renal lesion characterized as simple-appearing, is likely benign. No follow-up imaging is recommended for these lesions per consensus recommendations based on imaging criteria. REFERENCES: 1. Roberto Glass, et al. Guidelines for Management of Incidental Pulmonary Nodules Detected on CT Images: From the Fleischner Society 2017. Radiology. 2017;284(1):228-243. 2. Issac CRAWFORD, et al. Management of Incidental Adrenal Masses: A White Paper of the ACR Incidental Findings Committee. J Am Kaylen Radiol. 2017;14(8):0351-9567. A&P Assessment and plan (1) Unable to walk: Due to pain in both lower extremities but now left greater than right which is different than prior to surgery by report Status: Acute (2) Fecal impaction: Combination of postoperative pain and narcotics Status: Acute (3) Rectocele: By patient's description has had some issues potentially related to this for some time significantly worse with attempts to have bowel movement recently Status: Acute (4) S/P laminectomy: At L4/L5 with partial facetectomy bilaterally, postop day 4, Dr. Stubbs Status: Acute (5) Hypertension: Status: Chronic Qualifiers: Hypertension type: primary hypertension Qualified Code(s): I10 - Essential (primary) hypertension (6) COPD (chronic obstructive pulmonary disease): Status: Chronic Qualifiers: COPD type: emphysema Emphysema type: unspecified Qualified Code(s): J43.9 - Emphysema, unspecified (7) BMI 33.0-33.9,adult: Status: Chronic (8) Adrenal nodule: Incidental finding on CT imaging From CT Abd/pelvis: Small right adrenal nodule measuring approximately 14 mm. Consider 12 month follow-up adrenal CT. (Reference: Issac). Status: Acute (9) Pulmonary nodule: Incidental findings on CT imaging CT Abd/pelvis report: Rare subtle subpleural pulmonary nodule within the visualized lung bases all well under 5 mm. For patients at low risk (minimal or absent history of smoking and of other known risk factors), no routine follow-up is indicated. For patients at high risk (history of smoking or of other known risk factors), consider optional CT Chest at 12 months. (Reference: Roberto). Status: Acute Additional A&P Information Mild anemia, baseline unknown, normocytic Observation admission Stool softener and laxative therapy Low volume IV fluids to help with hydration Monitor response to above PT and OT evaluation Adjust pain medications Continue Flexeril which has not yet been started by patient and monitor response to treatment Notify Dr. Stubbs of admission and different lower extremity pain postoperatively tomorrow, not on-call this evening H&H in the morning Continue home lisinopril Continue home Breo and Ventolin Patient may take all medications except for narcotics Plans as noted above have been discussed with patient and her family and all were given an opportunity to ask questions Will need follow-up with primary care to address follow-up imaging as recommended by radiology for adrenal and pulmonary nodules Case management consultation to evaluate options for discharge planning as patient and family do not feel that they can adequately manage her current care in the home setting Currently low risk for VTE secondary to observation status Supportive care otherwise Full code Attestations Medical Necessity Statement*: Currently anticipate a stay less than two midnights in a patient presenting with a postoperative fecal impaction and constipation along with postoperative pain and difficulty ambulating and being cared for in the home setting. Plans are as noted above. Coding Level of Care Code Acute Steel [employer] Press Set Up Operator for Chg Fwd Diagnoses Unable to walk R26.2 Fecal impaction K56.41 Rectocele N81.6 S/P laminectomy Z98.890 Hypertension I10 Hypertension type: primary hypertension COPD (chronic obstructive pulmonary disease) J43.9 COPD type: emphysema Emphysema type: unspecified BMI 33.0-33.9,adult Z68.33 Adrenal nodule E27.8 Pulmonary nodule R91.1
[2021-10-11 23:57] VITALS: BP 145/82; PULSE 89; RESP 17; O2SAT 92
[2021-10-12] MEDS: sodium chloride 0.9% 1,000 ML 75 ML IV (02:43)
[2021-10-12] MEDS: bisacodyl 5 mg Tablet 10 MG PO (02:43)
[2021-10-12 04:00] VITALS: BP 145/82; PULSE 85; RESP 17; TEMP 37.2
--- NOTE | 2021-10-12 04:45 | PC.NURSE ---
Pt had a large bowel movement. She used the bedside camode and was placed back into bed. She did not complain of any pain during the bowel movement. Her back and right hip were sore after movement but denied any pain meds.
[2021-10-12 07:17] LABS: Hematocrit 35.9 % (37.0-47.0); Hemoglobin 11.6 g/dL (11.5-15.3)
[2021-10-12 07:33] VITALS: BP 170/93; PULSE 86; RESP 14; O2SAT 97
--- NOTE | 2021-10-12 07:35 | PC.NURSE ---
Pt updated on plan of care, no needs identified, meal tray ordered, vss, will continue to monitor.
[2021-10-12] MEDS: HYDROcodone-acetaminophen 10-325 mg Tablet 1 TAB PO ×2 (10:19→15:21)
--- NOTE | 2021-10-12 10:52 | PM.PN ---
Subjective Subjective: Interval history: Denying pain in her lower back, buttock, especially right side, upper leg, with pain radiating down the posterior side of the right leg. No loss of sensation. Is able to move her feet, toes. No urinary or bowel incontinence. Vitals/I&O/Wt Last Vital Signs Temp 99 F 10/12/21 04:00 Pulse 86 10/12/21 07:33 Resp 14 10/12/21 07:33 BP 170/93 10/12/21 07:33 Pulse Ox 97 10/12/21 07:33 10/11/21 10/12/21 10/12/21 22:59 06:59 14:59 Intake Total 297.5 / 297.5 Balance 297.5 / 297.5 Weight last 48 hrs Weight 88.451 kg Physical Exam Const: COMMON NORMALS: no acute distress, patient oriented x3 and alert GENERAL APPEARANCE: cooperative and anxious ORIENTATION/CONSCIOUSNESS: Yes awake HENMT: COMMON NORMALS: oropharynx normal Neck/C-Spine: COMMON NORMALS: no JVD Resp: COMMON NORMALS: normal respiratory effort and clear to auscultation bilaterally AUSCULTATION: clear to auscultation bilaterally Cardio: COMMON NORMALS: no JVD, regular rhythm, S1 normal heart sound present, S2 normal heart sound present and No murmurs present (Cardio) RHYTHM: regular rhythm HEART SOUNDS: S1 normal heart sound present and S2 normal heart sound present GI: COMMON NORMALS: Normal to inspection, nondistended, normoactive bowel sounds present, Soft to palpation and non-tender PALPATION: Yes Soft to palpation Extremity: COMMON NORMALS: no joint enlargement and no pedal edema OTHER: Legs appear well perfused. Moving her feet and toes. Neuro: COMMON NORMALS: patient oriented x3 and moves all extremities SENSORIUM/ORIENTATION: Yes alert SENSORY EXAM: Yes Normal double simultaneous stimulation for sensation OTHER: Denies diminished sensation. Symmetrical. Skin: COMMON NORMALS: no rashes or lesions noted GENERAL SKIN EXAM: no rashes or lesions noted Data : 10/12/21 07:03 10/11/21 19:51 A&P Assessment and plan (1) Unable to walk: Having pain after recent surgery suggestive of radiculopathy, in her lower back, radiating to the right buttock, down the posterior right leg. Has not been walking very much, and this makes it more difficult. Discussed with her orthopedic surgeon, he will try to see her, will let us know if any additional imaging would be indicated. Otherwise given more difficult recovery, difficulties with ambulation, PT, OT is requested. Would benefit from rehabilitation, case management working on discharge planning. Due to pain in both lower extremities but now left greater than right which is different than prior to surgery by report Status: Acute (2) Fecal impaction: Disimpacted, started on bowel regimen. Continue bowel regimen. Combination of postoperative pain and narcotics Status: Acute (3) Rectocele: By patient's description has had some issues potentially related to this for some time significantly worse with attempts to have bowel movement recently Status: Acute (4) S/P laminectomy: At L4/L5 with partial facetectomy bilaterally, postop day 4, Dr. Stubbs Status: Acute (5) Hypertension: Hold IVF. Continue lisinopril. Status: Chronic Qualifiers: Hypertension type: primary hypertension Qualified Code(s): I10 - Essential (primary) hypertension (6) COPD (chronic obstructive pulmonary disease): Currently not in exacerbation. Status: Chronic Qualifiers: COPD type: emphysema Emphysema type: unspecified Qualified Code(s): J43.9 - Emphysema, unspecified (7) BMI 33.0-33.9,adult: Status: Chronic (8) Adrenal nodule: Incidental finding on CT imaging From CT Abd/pelvis: Small right adrenal nodule measuring approximately 14 mm. Consider 12 month follow-up adrenal CT. (Reference: BarreraHoracio). Status: Acute (9) Pulmonary nodule: Incidental findings on CT imaging CT Abd/pelvis report: Rare subtle subpleural pulmonary nodule within the visualized lung bases all well under 5 mm. For patients at low risk (minimal or absent history of smoking and of other known risk factors), no routine follow-up is indicated. For patients at high risk (history of smoking or of other known risk factors), consider optional CT Chest at 12 months. (Reference: Roberto). Status: Acute Additional A&P Information Mild anemia, baseline unknown, normocytic Attestations Medical Necessity Statement*: Continue hospitalization for assessment of back pain following recent back surgery, with difficulty with ambulation, disposition planning and arrangements. Coding Level of Care Code Acute Supervisor Wet Room for Chg Fwd Exam Comprehensive Diagnoses Unable to walk R26.2 Fecal impaction K56.41 Rectocele N81.6 S/P laminectomy Z98.890 Hypertension I10 Hypertension type: primary hypertension COPD (chronic obstructive pulmonary disease) J43.9 COPD type: emphysema Emphysema type: unspecified BMI 33.0-33.9,adult Z68.33 Adrenal nodule E27.8 Pulmonary nodule R91.1
[2021-10-12] MEDS: polyethylene glycol 3350 Pkt 17 gm PO ×2 (11:56→17:48)
[2021-10-12] MEDS: sennosides-docusate Tablet 2 TAB PO ×2 (11:57→17:49)
[2021-10-12] MEDS: lisinopril 20 mg Tablet PO ×2 (11:58→21:15)
[2021-10-12] MEDS: TRAMadol 50 mg Tablet 100 MG PO (12:00)
[2021-10-12] MEDS: cyclobenzaprine 10 mg Tablet 5 MG PO (13:57)
[2021-10-12 16:48] VITALS: BP 152/84; PULSE 80; RESP 16; O2SAT 96
[2021-10-12 17:46] VITALS: BMI 35.6
[2021-10-12 17:49] VITALS: BP 153/75; PULSE 85; RESP 17; TEMP 36.6; O2SAT 95
[2021-10-12] MEDS: pregabalin 75 mg Capsule PO (17:49)
[2021-10-12 22:18] VITALS: BP 151/89; PULSE 79; RESP 18; TEMP 36.8; O2SAT 93
[2021-10-13] VITALS (7 sets, daily range): BP systolic 125–165; BP diastolic 69–81; PULSE 76–93; RESP 16–18; TEMP 36.4–37.1; O2SAT 90–94
[2021-10-13] MEDS: HYDROcodone-acetaminophen 10-325 mg Tablet 1 TAB PO ×4 (03:55→21:32)
[2021-10-13 05:58] LABS: Basophils % 0.6 %; Eosinophils # 0.2 10^3/uL (0.0-0.8); Eosinophils % 2.5 %; Hematocrit 33.1 % (37.0-47.0); Hemoglobin 10.7 g/dL (11.5-15.3); Lymphocytes # 1.7 10^3/uL (0.8-4.8); Lymphocytes % 22.9 %; Mean Corpuscular HGB Conc 32.3 g/dL (30.0-36.0); Mean Corpuscular Hemoglobin 29.2 pg (28.0-34.0); Mean Corpuscular Volume 90.4 fl (81-99); Mean Platelet Volume 9.2 fL (7.4-10.4); Monocytes # 0.5 10^3/uL (0.2-0.9); Monocytes % 7.2 %; Neutrophils # 4.78 10^3/uL (1.8-7.7); Neutrophils % 66.2 %; Nucleated Red Blood Cells % 0 %; Platelet Count 303 10^3/cmm (130-400); Red Blood Count 3.66 10^6/uL (4.1-5.3); Red Cell Distribution Width 13.4 % (12.1-15.1); White Blood Count 7.2 10^3/uL (4.0-10.0)
[2021-10-13 06:20] LABS: Anion Gap 12.1 (5-19); Blood Urea Nitrogen 13 mg/dL (8-23); Calcium 8.2 mg/dL (8.5-10.5); Carbon Dioxide 27 mmol/L (22-29); Chloride 100 mmol/L (98-107); Glucose 120 mg/dL (65-115); Osmolality Calculated 281 mOsm/kg (285-295); Potassium 4.1 mmol/L (3.5-5.1); Sodium 135 mmol/L (136-145)
[2021-10-13] MEDS: sennosides-docusate Tablet 2 TAB PO ×2 (09:02→17:10)
[2021-10-13] MEDS: pregabalin 75 mg Capsule PO ×2 (09:02→17:10)
[2021-10-13] MEDS: polyethylene glycol 3350 Pkt 17 gm PO ×2 (09:02→17:10)
[2021-10-13] MEDS: lisinopril 20 mg Tablet PO ×2 (09:02→21:22)
--- NOTE | 2021-10-13 10:23 | PC.CHAP ---
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 [] Patient/Family/Request visit [] Outpatient visit [] Follow-up visit [] Physician referral [] Code/Alert [x] Routine visit [] Staff referral [] Actively dying [] Patient sleeping [] Family support [] [] Out of room [] Palliative care [] [x] Receiving care in room [] Pre-surgical visit [] Trauma [x] Long length of stay [] ICU visit [] Other: Relational/Emotional Strength [] Patient feels connected with others/family/visitors/staff [x] Distress [] Loneliness/isolation [] Abandonment Spirituality of Patient [x] Person of Marleni [] Attends Episcopal of their [place] [x] Believes in Prayer [] Reads Bible or Scientologist materials [] There are Spiritual issues to be addressed Leaf 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 Interventions [x] Prayer [x] Active listening [x] Non-anxious presence [x] Spiritual/emotional support [] Crisis/trauma care [x] Spiritual counseling [] Bereavement support [] Provided bereavement packet [] Provided Bible/devotional materials [] Provided toy/stuffed animal, coloring book to patient or family member [] Provided Communion [] Anointing/[place] [] Salvation [x] Completed spiritual assessment [] Other: Impact on Illness or Injury [] Angry [x] Fearful [] Anxious [] Often cries [] Exhaustion [x] Unable to work [] Unable to attend restoration [] Unable to walk/stand [] Unable to read [] Unable to drive [] Unable to eat/drink [] Unable to sleep [] Unable to be with family [] Patient intubated [] Other: Summary she is in a great del of pain has a negative attitude not sure when she will be able to go home Time spent with patient 10 mins
--- NOTE | 2021-10-13 14:14 | P.PN_ITS ---
Subjective Subjective: Interval history: Reports yesterday she is better with therapy, today she was having pain. Reports that she did not get the benefit of pain medication before therapy. Request for scheduled medication. Discussed with her opioid scheduling may not be safe, however, other medications will make sure to schedule including Lyrica, and discussed adding lidocaine patch. She is agreeable with this plan. Vitals/I&O/Wt Last Vital Signs Temp 97.8 F 10/13/21 12:00 Pulse 93 10/13/21 12:00 Resp 18 10/13/21 12:00 BP 133/80 10/13/21 12:00 Pulse Ox 94 10/13/21 12:00 10/12/21 10/13/21 10/13/21 22:59 06:59 14:59 Intake Total 100 / 100 50 / 150 680 / 680 Balance 100 / 100 50 / 150 680 / 680 Weight last 48 hrs Weight 94.347 kg Weight 88.451 kg Physical Exam Const: COMMON NORMALS: no acute distress, patient oriented x3 and alert GENERAL APPEARANCE: cooperative and anxious ORIENTATION/CONSCIOUSNESS: Yes awake HENMT: COMMON NORMALS: oropharynx normal Neck/C-Spine: COMMON NORMALS: no JVD Resp: COMMON NORMALS: normal respiratory effort and clear to auscultation bilaterally AUSCULTATION: clear to auscultation bilaterally Cardio: COMMON NORMALS: no JVD, regular rhythm, S1 normal heart sound present, S2 normal heart sound present and No murmurs present (Cardio) RHYTHM: regular rhythm HEART SOUNDS: S1 normal heart sound present and S2 normal heart sound present GI: COMMON NORMALS: Normal to inspection, nondistended, normoactive bowel sounds present, Soft to palpation and non-tender PALPATION: Yes Soft to palpation Extremity: COMMON NORMALS: no joint enlargement and no pedal edema OTHER: Legs well perfused. Moving her feet and toes. Neuro: COMMON NORMALS: patient oriented x3 and moves all extremities SENSORIUM/ORIENTATION: Yes alert SENSORY EXAM: Yes Normal double simultaneous stimulation for sensation OTHER: Denies diminished sensation. Symmetrical. Skin: COMMON NORMALS: no rashes or lesions noted GENERAL SKIN EXAM: no rashes or lesions noted Data : 10/13/21 05:13 10/13/21 05:13 A&P Assessment and plan (1) Unable to walk: Was seen by her orthopedic surgeon, and at this time symptoms well within expected range post surgery. Additional studies at this time not recommended, but she will be reevaluated again in office. Continue symptomatic management, pain control, she is worse today with physical therapy, states due to not receiving pain medication, added message to make sure she received pain medication prior to therapy. Continue hydrocodone, continue scheduled Lyrica, discussed with her also addition of lidocaine patch. Has tramadol also as needed for breakthrough. Otherwise given more difficult recovery, difficulties with ambulation, PT, OT is requested. Would benefit from rehabilitation, case management working on discharge planning. Status: Acute (2) Fecal impaction: Disimpacted, started on bowel regimen. Continue bowel regimen. Combination of postoperative pain and narcotics Status: Acute (3) Rectocele: By patient's description has had some issues potentially related to this for some time significantly worse with attempts to have bowel movement recently Status: Acute (4) S/P laminectomy: At L4/L5 with partial facetectomy bilaterally, postop day 4, Dr. Stubbs Status: Acute (5) Hypertension: Better. Continue lisinopril. Status: Chronic Qualifiers: Hypertension type: primary hypertension Qualified Code(s): I10 - Essential (primary) hypertension (6) COPD (chronic obstructive pulmonary disease): Currently not in exacerbation. Status: Chronic Qualifiers: COPD type: emphysema Emphysema type: unspecified Qualified Code(s): J43.9 - Emphysema, unspecified (7) BMI 33.0-33.9,adult: Status: Chronic (8) Adrenal nodule: Incidental finding on CT imaging From CT Abd/pelvis: Small right adrenal nodule measuring approximately 14 mm. Consider 12 month follow-up adrenal CT. [facility] Status: Acute (9) Pulmonary nodule: Incidental findings on CT imaging CT Abd/pelvis report: Rare subtle subpleural pulmonary nodule within the visualized lung bases all well under 5 mm. For patients at low risk (minimal or absent history of smoking and of other known risk factors), no routine follow-up is indicated. For patients at high risk (history of smoking or of other known risk factors), consider optional CT Chest at 12 months. (Reference: [facility]). Status: Acute Additional A&P Information Mild anemia, baseline unknown, normocytic Attestations Medical Necessity Statement*: Continue hospitalization for symptom management due to persistent pain following lumbar spine laminectomy, difficulty with ambulation, disposition planning and arrangements for rehabilitation. 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
[2021-10-13] MEDS: cyclobenzaprine 10 mg Tablet 5 MG PO (21:22)
[2021-10-13] MEDS: lidocaine 5% Patch 1 PATCH TOPICAL (21:23)
[2021-10-14] VITALS: BP 152/78; PULSE 85; RESP 17; TEMP 36.6; O2SAT 95
[2021-10-14] MEDS: HYDROcodone-acetaminophen 10-325 mg Tablet 1 TAB PO ×2 (02:27→09:29)
[2021-10-14 04:00] VITALS: BP 141/76; PULSE 76; RESP 17; TEMP 36.6; O2SAT 94
[2021-10-14 06:38] LABS: Basophils % 0.7 %; Eosinophils # 0.2 10^3/uL (0.0-0.8); Eosinophils % 3.5 %; Hemoglobin 10.4 g/dL (11.5-15.3); Lymphocytes # 1.6 10^3/uL (0.8-4.8); Lymphocytes % 27.9 %; Mean Corpuscular HGB Conc 31.5 g/dL (30.0-36.0); Mean Corpuscular Hemoglobin 28.6 pg (28.0-34.0); Mean Corpuscular Volume 90.7 fl (81-99); Mean Platelet Volume 9.2 fL (7.4-10.4); Monocytes # 0.5 10^3/uL (0.2-0.9); Monocytes % 9.3 %; Neutrophils # 3.31 10^3/uL (1.8-7.7); Neutrophils % 58.1 %; Nucleated Red Blood Cells % 0 %; Platelet Count 324 10^3/cmm (130-400); Red Blood Count 3.64 10^6/uL (4.1-5.3); Red Cell Distribution Width 13.3 % (12.1-15.1); White Blood Count 5.7 10^3/uL (4.0-10.0)
[2021-10-14 07:09] LABS: Anion Gap 10.2 (5-19); Blood Urea Nitrogen 17 mg/dL (8-23); Carbon Dioxide 28 mmol/L (22-29); Chloride 101 mmol/L (98-107); Glucose 100 mg/dL (65-115); Osmolality Calculated 282 mOsm/kg (285-295); Potassium 4.2 mmol/L (3.5-5.1); Sodium 135 mmol/L (136-145)
[2021-10-14 08:00] VITALS: BP 156/83; PULSE 84; RESP 18; TEMP 37.2; O2SAT 94
--- NOTE | 2021-10-14 08:25 | P.PN_ITS ---
Subjective Subjective: Interval history: Patient up in the chair having morning Vitals/I&O/Wt Last Vital Signs Temp 97.9 F 10/14/21 04:00 Pulse 76 10/14/21 04:00 Resp 17 10/14/21 04:00 BP 141/76 10/14/21 04:00 Pulse Ox 94 10/14/21 04:00 10/13/21 10/14/21 10/14/21 22:59 06:59 14:59 Intake Total 120 / 800 240 / 1040 Balance 120 / 800 240 / 1040 Weight last 48 hrs Weight 208 lb Physical Exam Narrative: EXAM NARRATIVE: She is alert and oriented x3 has good general appearance normal normal affect. Firing all motor groups. Feet warm to touch with good cap refill. Incision is clean and dry. Data : 10/14/21 05:53 10/14/21 05:53 A&P Assessment and plan (1) S/P laminectomy: Return to the office and 1 -2 week's time for wound check. Continue to mobilize with a walker. Be cautious with bending lifting or twisting activities. Status: Acute Attestations Medical Necessity Statement*: defer to medical team Coding Level of Care Code Acute Workers Compensation Manager for Andriag Fwcrystal Diagnoses S/P laminectomy Z98.890
[2021-10-14] MEDS: pregabalin 75 mg Capsule PO (10:30)
[2021-10-14] MEDS: lisinopril 20 mg Tablet PO (10:30)
[2021-10-14] MEDS: sennosides-docusate Tablet 2 TAB PO (10:30)
[2021-10-14] MEDS: polyethylene glycol 3350 Pkt 17 gm PO (10:31)
[2021-10-14] MEDS: lidocaine 5% Patch 1 PATCH TOPICAL (10:31)
[2021-10-14 10:32] VITALS: PULSE 93; RESP 18; O2SAT 93
--- NOTE | 2021-10-14 12:12 | P.DS_ITS ---
Discharge Providers Date of Admission: 10/12/21 07:05 Date of Discharge: October 14, 2021 Attending Provider at Admission: Negrita Lambert MD Attending Provider at Discharge: Emanuel Braun Primary Care Provider: Eugenio Rushing Diagnoses at Discharge Discharge Diagnosis (1) S/P laminectomy: Status: Acute Permanent problem details: bilateral L4/L5 with partial facetectomies, Dr Stubbs (2) Unable to walk: Status: Acute (3) Fecal impaction: Status: Acute (4) Rectocele: Status: Acute (5) BMI 33.0-33.9,adult: Status: Chronic (6) Pulmonary nodule: Status: Acute Permanent problem details: CT ABD/pelvis report : Rare subtle subpleural pulmonary nodule within the visualized lung bases all well under 5 mm. For patients at low risk (minimal or absent history of smoking and of other known risk factors), no routine follow-up is indicated. For patients at high risk (history of smoking or of other known risk factors), consider optional CT Chest at 12 months. (Reference: [facility]). (7) Adrenal nodule: Status: Acute Permanent problem details: From CT Abd/pelvis report: Small right adrenal nodule measuring approximately 14 mm. Consider 12 month follow-[facility] (8) Hypertension: Status: Chronic Qualifiers: Hypertension type: primary hypertension Qualified Code(s): I10 - Essential (primary) hypertension (9) COPD (chronic obstructive pulmonary disease): Status: Chronic Qualifiers: COPD type: emphysema Emphysema type: unspecified Qualified Code(s): J43.9 - Emphysema, unspecified Reason for Visit Reason for Visit: BACK PAIN Hospital Course Hospital Course 81-year-old lady after L4/5 laminectomy with partial vasectomies on 10/07 return to the hospital due to lower back, buttock pain radiating down especially the right leg, unable to walk due to the pain, on presentation also with fecal impaction, disimpacted, with noted rectocele, significantly worse with attempts to have a bowel movement recently, on presentation on CT also incidentally noted 14 mm adrenal nodule on the right. Consider 12-month follow-up adrenal CT. Incidentally noted also nodules in bilateral lung bases, well under 5 mm. Given history of smoking, consider follow-up CT in 12 months. She was hospitalized for pain control, PT, OT assessment, mobilization, continued bowel regimen, disposition planning and arrangements. Was assessed by orthopedics, with her symptoms determined to be secondary to recovery from surgery, at this time without finding of need for additional imaging. She is asked to follow-up in office in 1-2 weeks for reassessment and wound check. With pain limiting mobility, she has been treated with combination of lidocaine patch comfortable in, hydrocodone, cyclobenzaprine. Given functional limitation, would benefit from additional skilled rehabilitation, and is currently accepted and proceeding today. Physical Exam Const: COMMON NORMALS: no acute distress, patient oriented x3 and alert GENERAL APPEARANCE: cooperative and comfortable ORIENTATION/CONSCIOUSNESS: Yes awake OTHER: Up in chair. Today is feeling better. Worked with PT. HENMT: COMMON NORMALS: oropharynx normal Neck/C-Spine: COMMON NORMALS: no JVD Resp: COMMON NORMALS: normal respiratory effort and clear to auscultation bilaterally AUSCULTATION: clear to auscultation bilaterally Cardio: COMMON NORMALS: no JVD, regular rhythm, S1 normal heart sound present, S2 normal heart sound present and No murmurs present (Cardio) RHYTHM: regular rhythm HEART SOUNDS: S1 normal heart sound present and S2 normal heart sound present GI: COMMON NORMALS: Normal to inspection, nondistended, normoactive bowel sounds present, Soft to palpation and non-tender PALPATION: Yes Soft to palpation Extremity: COMMON NORMALS: no joint enlargement and no pedal edema OTHER: L egs well perfused. Moving her feet and toes. Neuro: COMMON NORMALS: patient oriented x3 and moves all extremities SENSOR IUM/ORIENTATION: Yes alert SENSORY EXAM: Yes Normal double simultaneous stimulation for sensation OTHER: Denies diminished sensation. Symmetrical. Skin: COMMON NORMALS: no rashes or lesions noted GENERAL SKIN EXAM: no rashes or lesions noted Discharge Data Data Completed and Pending: Completed Studies During Hospitalization Category Date Time Status CT abdomen pelvis w con* [id number] Urge nt Cat Scan 10/11/21 20:29 Completed Pending at discharge Category Date Time Status Basic Metabolic P ynes AM LABS Lab 10/15/21 04:00 Ordered COVID [SARS Covid -2 Antigen] Routin e Lab 10/14/21 11:50 Received Complete Blood Co unt w/Auto AM LABS Lab 10/15/21 04:00 Ordered Labs from last 24 hours 10/14/21 10/14/21 10/14/21 11:50 05:53 05:53 WBC 5.7 RBC 3.64 L Hgb 10.4 L Hct 33.0 L MCV 90.7 MCH 28.6 MCHC 31.5 RDW 13.3 Plt Count 324 MPV 9.2 Neut % (Auto) 58.1 Lymph % (Auto) 27.9 Jenkins % (Auto) 9.3 Eos % (Auto) 3.5 Baso % (Auto) 0.7 Neut # (Auto) 3.31 Lymph # (Auto) 1.6 Jenkins # (Auto) 0.5 Eos # (Auto) 0.2 Baso # (Auto) 0.0 Nucleated RBC % (a uto) 0 Nucleated RBCs # 0.0 Sodium 135 L Potassium 4.2 Chloride 101 Carbon Dioxide 28 Anion Gap 10.2 BUN 17 Creatinine 0.4 L GFR Calculation Not Reportable Glucose 100 Calculated Osmolal ity 282 L Calcium 8.0 L SARS-CoV-2 Ag (Rap id) Pending Vitals: Last Vital Signs Temp 98.9 F 10/14/21 08:00 Pulse 93 10/14/21 10:32 Resp 18 10/14/21 10:32 BP 156/83 10/14/21 08:00 Pulse Ox 93 10/14/21 10:32 Discharge Plan Discharge Patient Disposition: Xfer [facility] Condition: Stable Prescriptions: New pregabalin 75 mg Capsule 75 mg PO BID Qty: 60 RF: 0 bisacodyl 5 mg Tablet,Delayed Release (Dr/Ec) 10 mg PO DAILY PRN (Reason: Constipation) Qty: 30 RF: 0 polyethylene glycol 3350 17 gram Powder In Packet 17 g PO BID Qty: 180 RF: 0 sennosides-docusate sodium [Stool Softener-Laxative] 8.6-50 mg Tablet 2 tab PO BID Qty: 180 RF: 0 lidocaine 5 % Adhesive Patch,Medicated 1 patch topical [id number] Qty: 30 RF: 0 Continued Stool Softener 50 mg capsule 100 mg PO DAILY RF: 0 Breo Ellipta 200-25 mcg/dose blister with device 1 inh inhalation DAILY RF: 0 lisinopril 20 mg tablet 20 mg PO BID RF: 0 cyclobenzaprine 5 mg tablet 5 mg PO TID PRN (Reason: muscle spasm) Qty: 42 RF: 0 Ventolin HFA 90 mcg/actuation HFA aerosol inhaler 2 puff INHALATION QID PRN (Reason: Shortness Of Breath) RF: 0 Changed hydrocodone-acetaminophen 5-325 mg tablet 1 - 2 tab PO Q4H PRN (Reason: pain) Qty: 20 RF: 0 Discontinued tramadol 50 mg tablet 50 mg PO Q4H PRN (Reason: Pain) RF: 0 Discharge Orders: Discharge Order (Routine); Ordered 10/14/21 Ordered By: Emanuel Braun Referrals: [facility] [Outside] Weston Stubbs DO [Physician] - 1 week Eugenio Rushing [Primary Care Provider] - (2 wks) Discharge Activity: As per PT/OT instructions Patient Instructions: Opioid Safety Activity Restrictions/Additional Instructions: Please follow-up with orthopedics in office in 1-2 weeks time for wound check. Please follow-up with your primary provider and discuss incidentally found lung nodule, 14 monitor, discussed consideration of repeat CT scan to follow-up in 12 months to exclude changes or concerning features. Similarly also discussed lung nodules in the lung bases, all under 5 mm in size, discussed consideration of follow-up CT scan in 12 months. Avoid constipation. Discussed with your primary doctor regarding rectocele. Consider referral to gynecology. Follow-up with your primary doctor for reassessment of anemia, continued follow- up regarding hypertension, COPD and other chronic problems. Discussed options for weight loss. Discharge Attestations Time Spent in Discharge Care*: greater than 30 min Quality Metrics Clinical Quality Measures During this hospital stay, did patient experience: None Coding Level of Care Code Acute [facility] note Diagnoses S/P laminectomy Z98.890 Unable to walk R26.2 Fecal impaction K56.41 Rectocele N81.6 BMI 33.0-33.9,adult Z68.33 Pulmonary nodule R91.1 Adrenal nodule E27.8 Hypertension I10 Hypertension type: primary hypertension COPD (chronic obstructive pulmonary disease) J43.9 COPD type: emphysema Emphysema type: unspecified
[2021-10-14 12:25] LABS: SARS Covid-2 Antigen Negative (Negative)
[2021-10-14 16:00] VITALS: BP 136/82; PULSE 79; RESP 18; TEMP 36.4; O2SAT 99
== END 2021-10-14 16:59 | disposition skilled nursing facility (03) ==
LOC: ER 10-12 00:03 → ER IP 10-12 08:00 → MEDSURG 10-12 16:11
PROVIDERS: Admitting Provider Hospitalist; Emergency Provider Emergency Medicine; PCP Family Medicine; Visit Provider Internal Medicine
DX: R26.2 Difficulty in walking, not elsewhere classified (principal); K56.41 Fecal impaction; N81.6 Rectocele; J43.9 Emphysema, unspecified; E27.8 Other specified disorders of adrenal gland; R91.1 Solitary pulmonary nodule; J44.9 Chronic obstructive pulmonary disease, unspecified; I10 Essential (primary) hypertension; Z98.890 Other specified postprocedural states; Z87.891 Personal history of nicotine dependence
CPT/HCPCS: 36415; 74177; 80048; 80053; 85014; 85018; 85025; 87426; 94640; 96365; 96375; 97116; 97161; 97166; 97530; 99285; G0378; J1100; J1170; J2405; J7030; Q9967

== ENCOUNTER → 2022-03-23 14:41 | Outpatient (BNVA) | payer MEDICARE, SELFPAY | PROVIDERS: PCP Family Medicine; Visit Provider Internal Medicine Pulmonary Disease | DX: T78.40XA Allergy, unspecified, initial encounter (principal); M25.641 Stiffness of right hand, not elsewhere classified; M25.642 Stiffness of left hand, not elsewhere classified; J44.9 Chronic obstructive pulmonary disease, unspecified; J84.9 Interstitial pulmonary disease, unspecified; R06.02 Shortness of breath; I10 Essential (primary) hypertension | CPT/HCPCS: 36415; 82103; 82785; 86003; 86225; 86235; 99204 ==

== ENCOUNTER 2022-04-27 09:50 | Outpatient (CLI) | payer MEDICARE, SELFPAY ==
--- NOTE | 2022-04-27 14:33 | PFTS_ITS ---
Date of Study:04/27/22 Date of Dictation: MECHANICS: Forced vital capacity (FVC) is reduced. Forced expiratory volume in one second (FEV1) is reduced. FEV1/FVC is reduced. FLOW VOLUME LOOP: Reduced flow at all lung volumes with significant scooping. LUNG VOLUMES: Total lung capacity (TLC) is normal. Residual volume (RV) is increased. DIFFUSING CAPACITY FOR CARBON MONOXIDE: Normal. INTERPRETATION: The prebronchodilator spirometry is consistent with moderate airflow obstruction. The postbronchodilator spirometry is also consistent with moderate airflow obstruction. There is postbronchodilator response however it does not fulfill the 'significant' criteria. Lung volumes are consistent with mild air trapping. Gas exchange (DLCO) is normal. MTDD
== END 2022-04-27 09:51 | disposition home or self-care (01) ==
LOC: RT 09:56
PROVIDERS: PCP Family Medicine; Visit Provider Internal Medicine Pulmonary Disease
DX: J44.9 Chronic obstructive pulmonary disease, unspecified (principal)
CPT/HCPCS: 94060; 94726; 94729; J7614

== ENCOUNTER → 2022-05-04 10:15 | Outpatient (BNVA) | payer MEDICARE, SELFPAY | PROVIDERS: PCP Family Medicine; Visit Provider Internal Medicine Pulmonary Disease | DX: M25.641 Stiffness of right hand, not elsewhere classified (principal); M25.642 Stiffness of left hand, not elsewhere classified; T78.40XA Allergy, unspecified, initial encounter; J44.9 Chronic obstructive pulmonary disease, unspecified; J45.909 Unspecified asthma, uncomplicated | CPT/HCPCS: 85651; 86140; 86200; 86431; 99214 ==

== ENCOUNTER → 2022-07-25 11:01 | Outpatient (BNVA) | payer MEDICARE, SELFPAY | PROVIDERS: PCP Family Medicine; Visit Provider Podiatrist Foot & Ankle Surgery | DX: M19.071 Primary osteoarthritis, right ankle and foot (principal); M19.072 Primary osteoarthritis, left ankle and foot; M76.829 Posterior tibial tendinitis, unspecified leg | CPT/HCPCS: 99203 ==

== ENCOUNTER → 2022-10-24 14:18 | Outpatient (BNVA) | payer MEDICARE, SELFPAY | PROVIDERS: PCP Family Medicine; Visit Provider Internal Medicine Pulmonary Disease | DX: J44.9 Chronic obstructive pulmonary disease, unspecified (principal); R05.3 Chronic cough; T78.40XA Allergy, unspecified, initial encounter; M25.641 Stiffness of right hand, not elsewhere classified; M25.642 Stiffness of left hand, not elsewhere classified | CPT/HCPCS: 99214 ==

== ENCOUNTER → 2022-12-13 14:54 | Outpatient (BNVA) | payer MEDICARE, SELFPAY | PROVIDERS: PCP Family Medicine; Referring Provider Registered Nurse; Visit Provider Orthopaedic Surgery | DX: M65.332 Trigger finger, left middle finger (principal); M65.331 Trigger finger, right middle finger | CPT/HCPCS: 20550; 99203; J0702; J3490 ==

== ENCOUNTER → 2023-05-03 10:46 | Outpatient (BNVA) | payer MEDICARE, SELFPAY | PROVIDERS: PCP Family Medicine; Visit Provider Internal Medicine Pulmonary Disease | DX: J44.9 Chronic obstructive pulmonary disease, unspecified (principal); J45.909 Unspecified asthma, uncomplicated; M25.641 Stiffness of right hand, not elsewhere classified; M25.642 Stiffness of left hand, not elsewhere classified; R05.3 Chronic cough; I10 Essential (primary) hypertension; Z77.22 Contact with and (suspected) exposure to environmental tobacco smoke (acute) (chronic); R91.1 Solitary pulmonary nodule | CPT/HCPCS: 99214 ==

== ENCOUNTER → 2023-05-31 11:06 | Outpatient (BNVA) | payer MEDICARE, SELFPAY | PROVIDERS: PCP Family Medicine; Visit Provider Student in an Organized Health Care Education/Training Program | DX: M65.332 Trigger finger, left middle finger (principal); M65.331 Trigger finger, right middle finger | CPT/HCPCS: 99204 ==

== ENCOUNTER 2023-06-25 06:48 | Day surgery (SDC) | payer MEDICARE, SELFPAY ==
[2023-06-25] VITALS (7 sets, daily range): BP systolic 142–177; BP diastolic 81–103; PULSE 67–76; RESP 12–18; TEMP 36–36.6; O2SAT 92–96
--- NOTE | 2023-06-25 06:54 | W.PM.OPSUD ---
Surgery/Procedure H&P Update DATE OF PROCEDURE: June 25, 2023 DATE H&P PERFORMED: 05/31/23 CHANGES TO PREVIOUS DOCUMENTATION: None. No change in HPI from office visit on 05/31/2023. Patient has failed conservative treatment for bilateral middle finger triggers. Patient understands incidence of procedure risk benefits complication alternatives surgery elects proceed with surgical intervention all questions been answered at this time we will proceed with bilateral middle finger trigger releases all questions answered. PREOP DIAGNOSIS: Bilateral middle finger triggers PRIMARY INDICATION FOR PROCEDURE: Bilateral middle finger triggers PLANNED PROCEDURE: Operation Date: 06/25/23 08:20 Proposed Procedures p bilateral middle trigger finger releases 95249,M65.332 M65.331(Bilateral) - Chalino Martinez DO
--- NOTE | 2023-06-25 06:58 | ECG_ITS ---
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 Measurements Intervals [place] Rate: 66 P: 24 CO: 181 QRS: -5 QRSD: 100 T: 7 QT: 393 QTc: 413 Interpretive Statements SINUS RHYTHM Compared to ECG 10/03/2021 10:13:02 Myocardial infarct finding no longer present Electronically Signed On 06-25-2023 11:09:21 CDT by Cuca Kaplan M.D. [id number]
[2023-06-25] MEDS: ketorolac 30 mg/mL INJ IVP (07:21)
[2023-06-25] MEDS: sodium chloride 0.9% 1,000 ML 30 ML IV (07:22)
[2023-06-25] MEDS: acetaminophen 1,000 MG/100 ML PIGGYBACK 400 MG IV (07:22)
[2023-06-25] MEDS: ceFAZolin 2,000 MG in sodium chloride 0.9% (plus) 50 ML 100 MG IV (07:43)
--- NOTE | 2023-06-25 08:03 | ANES.PREANE2 ---
Pre-Anesthetic Assessment Height/Weight: Height 1.63 m Weight 86.183 kg Temp Pulse Resp BP Pulse Ox O2 Del Method 97.8 F 76 18 177/103 94 Room Air 06/25/23 07:08 06/25/23 07:08 06/25/23 07:08 06/25/23 07:08 06/25/23 07:08 06/25/23 07:08 Preop Diagnosis: BIlateral middle finger triggers Operation Date: 06/25/23 08:20 Proposed Procedures p bilateral middle trigger finger releases 15288,M65.332 M65.331(Bilateral) - Chalino Michelle, DO Familial anesthetic complications: none Was Beta Ruth taken within 24 hours: N/A Was Clonidine taken within 24 hours: N/A Last intake: Intake Last Liquid Date 06/24/23 Last Liquid Time 20:00 Last Solid Date 06/24/23 Last Solid Time 20:00 Social No alcohol and No tobacco Exam alert, oriented x 3, clear to auscultation bilaterally and regular rate & rhythm Airway Submandibular: within normal limits Cervical ROM: within normal limits Mallampati: Class II Dentition: false Pulmonary Asthma CV/HEM Hypertension Metabolic Morbid Obesity [facility] Lower Back Pain and Osteoarthritis/DJD Anesthetic Plan ASA status: 3 Anesthesia: General Medications/Allergies Home Medications Medication Instructions Recorded Confirmed Last Taken Type docusate sodium 50 mg capsule 100 mg PO DAILY 09/15/21 06/22/23 06/22/23 History (Stool Softener) sennosides 8.6 mg-docusate sodium 2 tab PO BID #180 tabs 10/14/21 06/22/23 06/22/23 Rx 50 mg tablet (Stool Softener-Laxative) astaxanthin 4 mg capsule 12 mg PO DAILY 03/23/22 06/22/23 06/22/23 History Custom Made Orthotics #1 ea 07/25/22 05/31/23 Unknown Rx polyethylene glycol 3350 17 gram 17 g PO BID PRN constipation 10/24/22 06/22/23 06/22/23 History oral powder packet losartan 25 mg tablet 25 mg PO DAILY #30 tabs 01/17/23 06/22/23 06/22/23 Rx fluticasone fur. 100 mcg-umeclid 1 inh inhalation DAILY #60 ea 05/03/23 06/22/23 06/22/23 Rx 62.5 mcg-vilant 25 mcg inhalat.powder (Trelegy Ellipta) montelukast 10 mg tablet 10 mg PO DAILY #60 tabs 05/03/23 06/22/23 06/22/23 Rx (Singulair) ondansetron 4 mg disintegrating 4 mg PO DAILY PRN nausea and 06/25/23 Unknown Rx tablet vomiting 3 days #9 tabs tramadol 50 mg tablet 50 mg PO Q6H PRN pain #20 tabs 06/25/23 Unknown Rx Allergies Allergy/AdvReac Type Severity Reaction Status Date / Time meclizine [From Antivert] Allergy ALGY-Rash Verified 06/22/23 14:41 Current Medications Generic Name Dose Route Start Last Admin Trade Name Freq PRN Reason Stop Dose Admin Sodium Chloride 1,000 mls @ 30 mls/hr 06/25/23 07:00 06/25/23 07:22 Sodium Chloride 0.9% IV 06/26/23 06:59 30 mls/hr .Q24H RUBIO Administration PFSH Anesthesia Medical History BMI 33.0-33.9,adult COPD (chronic obstructive pulmonary disease) Fecal impaction History of nonmelanoma skin cancer Hypertension Rectocele Surgical History H/O foot surgery with artificial great toe H/O: hysterectomy History of bilateral knee replacement History of bladder surgery History of hemorrhoidectomy S/P laminectomy (10/07/21) bilateral L4/L5 with partial facetectomies, Dr Stubbs Family History Other Hypertension Social History Smoking and tobacco status: never smoked Alcohol intake: never Substance/Drug Use: never Caregiver/support person: Yes Lives independently: Yes Data Anesthesia Cardiac Studies: No Data to Display
[2023-06-25] MEDS: ROPivacaine 0.5% SDV 30 mL 150 MG INJECTION (08:05)
[2023-06-25] MEDS: BUPivacaine 0.5% INJ 30 mL INJECTION (08:05)
--- NOTE | 2023-06-25 08:42 | PM.OP2 ---
Brief Operative Note Date of procedure: 06/25/23 Pre-op diagnosis: Bilateral middle trigger fingers Post-op diagnosis: same Procedure Done: Bilateral middle trigger finger releases Surgeon: Chalino Martinez Estimated blood loss (mL): 5 Complications: none Post-op Plan: Postop Hand Orthopedic discharge instructions: Patient should leave dressing on in place for 72 hours after that may remove dressing, clean incision with warm soapy water pat dry and redress with a dry dressing or Band-Aid. Encourage finger range of motion as tolerated May weight-bear as tolerated to the operative extremity Elevation and ice as needed for pain and swelling Take pain medication as prescribed Take antinausea medication as needed May supplement with vide-tho-dcznvyw anti-inflammatories (make sure not to take more than 3000 mg of Tylenol in 1 day as your pain medication does have Tylenol in it) Follow-up in the orthopedic office in 2 weeks Contact the office for any questions or concerns Coding Level of Care Code Acute Code for Augie Fwcrystal
--- NOTE | 2023-06-25 08:48 | PM.PACU ---
PACU note Narrative: Pt is a 82 y/o Female who underwent bilateral middle trigger finger releases. Patient transferred to PACU in stable condition. Pain is well controlled. Dressing on hand is dry and in place. Patient has good perfusion to her fingers and is able to move fingers. Patient has normal elbow range of motion. Unable to assess sensation due to localized anesthetic. Exam: awake Disposition: discharged
--- NOTE | 2023-06-25 09:00 | PM.OP ---
Operative Report Date of procedure: June 25, 2023 Pre-op diagnosis: Preop Diagnosis BIlateral middle finger triggers Truck Washer: Parth Martinez PA-C PA-C was necessary and useful for assistance in prepping and draping patient as well as with assistance with hand positioning as well as retraction protection neurovascular structures as well as closing. Procedure: Post-op diagnosis: Same Procedure done: Right middle finger?trigger?release Left middle finger trigger release Surgeon: Chalino Martinez DO Estimated blood loss: 5cc Tourniquet time 7mins left 10 minutes on the right with Esmarch tourniquet Complications: None Condition: stable Disposition: same day Brief History: Patient's been seen and worked up in the outpatient setting and findings consistent with preoperative diagnosis of bilateral middle finger?trigger.? He is failed conservative treatment.? Continues to have mechanical locking and catching.? Severe pain as well.? Patient has failed conservative treatment with cortisone injections. We talked about treatment options nonoperative versus operative intervention.? ?Patient understands the risk benefits complication alternatives of surgical nonsurgical treatment options.? Understanding his risks with surgery he elects proceed with surgical intervention.? Consent obtained in the office.? Here today to proceed with surgical intervention.? All questions answered. Procedure: Patient was seen and evaluated in the preoperative holding area.? Consent was reviewed and signed with patient.? Seen evaluated by Anesthesia Department.? Once cleared for surgery was brought back to the operative suite.? Placed in supine position on the OR table all bony prominences well-padded patient properly secured to the bed.? Patient's right and left arms was then placed to the armboard.? A nonsterile tourniquet applied to the left upper arm. Plan was for an Esmarch tourniquet on the right side.? Patient's bilateral upper extremity was then prepped and draped in standard orthopedic fashion.? Final timeout performed.? Patient received appropriate preoperative antibiotics. Esmarch tourniquet was used exsanguinate the left upper extremity tourniquet insufflated to 250 mmHg. Started with left middle finger. Under sterile aseptic technique local digital block was performed to the left middle finger.? Once appropriately anesthetized a standard oblique incision was made centering over the A1 fausto following patient's flexor crease.? Sharp scalpel incision was made only through skin and then switched to Littler dissection scissors and spread longitudinally directly over the flexor tendon sheath.? I then mobilized both radially and ulnarly and Kasdan retractors were used and placed by my life science research assistant to protect neurovascular bundle.? Next I visualized the A1 fausto and this was incised with a scalpel.? I then switched to dissection scissors and released the A1 fausto both proximally as well as distally to its entirety.? Significant tendon sheath fluid was noted consistent with inflammation.? Mild fraying of the flexor tendons noted but no tear.? At this point I utilized a rag nail and pulled the tendons FDS and FDP out of the incision and no?triggering was noted.? Thoroughly irrigation was performed. tourniquet was deflated hemostasis was satisfactory. I then placed a Ray-Jacek into the incisions and proceeded with release of the right middle finger. Next moved to the right middle finger. Esmarch tourniquet was used take under sterile aseptic technique local digital block was performed to the right middle finger.? Once appropriately anesthetized a standard oblique incision was made centering over the A1 fausto following patient's flexor crease.? Sharp scalpel incision was made only through skin and then switched to Littler dissection scissors and spread longitudinally directly over the flexor tendon sheath.? I then mobilized both radially and ulnarly and Kasdan retractors were used and placed by my life science research assistant to protect neurovascular bundle.? Next I visualized the A1 fausto and this was incised with a scalpel.? I then switched to dissection scissors and released the A1 fausto both proximally as well as distally to its entirety.? Significant tendon sheath fluid was noted consistent with inflammation.? Mild fraying of the flexor tendons noted but no tear.? At this point I utilized a rag nail and pulled the tendons FDS and FDP out of the incision and no?triggering was noted.? I then had anesthesia wake up the patient and patient was able to actively flex and extend with no?triggering.? This point thorough irrigation was performed.? Esmarch tourniquet was removed hemostasis satisfactory with bipolar.? I then subsequently closed the incision with interrupted nylon suture.? Lastly I moved over to the left side once again removed the Ray-Jacek hemostasis was satisfactory head patient follow commands to try and attempt to retrigger she was able to actively flex and extend the finger with no active triggering. Left middle finger was then closed with interrupted nylon suture. Carlos Enriqueoform 4 x 4's, Kerlix and an Zev wrap was applied for a bulky soft dressings to the bilateral hands.? Patient was then subsequently awakened from anesthesia and taken to PACU in stable condition tolerated procedure without issues. Disposition: Patient taken back in stable condition recovering well.? Patient will receive appropriate discharge instruction as well as pain medication postoperatively.? Patient to follow-up with me in the office in 2 weeks for repeat evaluation and incision check.? Patient understands that any questions or concerns and contact the office.? All questions answered.
--- NOTE | 2023-06-25 16:59 | ANE.PACU2 ---
Inpatient post-anesthesia follow up: Airway intact: Yes Vital signs: Temperature 97.0 F Pulse Rate 71 Respiratory Rate 18 Blood Pressure 163/83 Pulse Oximetry 95 Oxygen Delivery Me thod Room Air Oxygen Flow Rate Fraction of Inspir ed Oxygen Hydration adequate: Yes Nausea and vomiting: No Pain level: 1 Mental status: Baseline
== END 2023-06-25 09:53 | disposition home or self-care (01) ==
PROVIDERS: PCP Family Medicine; Visit Provider Student in an Organized Health Care Education/Training Program
PROC: (CPT 26055; principal; 2023-06-25 08:20)
DX: M65.331 Trigger finger, right middle finger (principal); M65.332 Trigger finger, left middle finger; I10 Essential (primary) hypertension; E66.01 Morbid (severe) obesity due to excess calories; Z68.32 Body mass index [BMI] 32.0-32.9, adult
CPT/HCPCS: 26055 ×2; 93005; J0131; J0690; J1885; J2704; J2795; J3010; J3490; J7030

== ENCOUNTER → 2023-07-10 09:35 | Outpatient (BNVA) | payer MEDICARE, SELFPAY | PROVIDERS: PCP Family Medicine; Visit Provider Student in an Organized Health Care Education/Training Program | DX: M65.332 Trigger finger, left middle finger; M65.331 Trigger finger, right middle finger | CPT/HCPCS: 99024; 99213 ==

== ENCOUNTER → 2023-12-03 10:14 | Outpatient (BNVA) | payer MEDICARE, SELFPAY | PROVIDERS: PCP Family Medicine; Visit Provider Internal Medicine Pulmonary Disease | DX: J44.9 Chronic obstructive pulmonary disease, unspecified (principal); J45.909 Unspecified asthma, uncomplicated; M25.641 Stiffness of right hand, not elsewhere classified; M25.642 Stiffness of left hand, not elsewhere classified; R05.3 Chronic cough; I10 Essential (primary) hypertension | CPT/HCPCS: 99214 ==

== ENCOUNTER → 2023-12-11 13:52 | Outpatient (BNVA) | payer MEDICARE, SELFPAY | PROVIDERS: PCP Family Medicine; Visit Provider Nurse Practitioner Family | DX: L57.0 Actinic keratosis (principal); D22.4 Melanocytic nevi of scalp and neck; L57.8 Other skin changes due to chronic exposure to nonionizing radiation; L82.1 Other seborrheic keratosis; Z85.828 Personal history of other malignant neoplasm of skin | CPT/HCPCS: 17000; 99213 ==

== ENCOUNTER → 2024-12-11 14:14 | Outpatient (BNVA) | payer MEDICARE, SELFPAY | PROVIDERS: PCP Family Medicine; Visit Provider Nurse Practitioner Family | DX: D22.5 Melanocytic nevi of trunk (principal); L57.8 Other skin changes due to chronic exposure to nonionizing radiation; L82.1 Other seborrheic keratosis; L81.4 Other melanin hyperpigmentation; Z08 Encounter for follow-up examination after completed treatment for malignant neoplasm; Z85.828 Personal history of other malignant neoplasm of skin; L91.8 Other hypertrophic disorders of the skin; Z78.9 Other specified health status; R20.8 Other disturbances of skin sensation; L53.8 Other specified erythematous conditions; L29.89 Other pruritus; K82.0 Obstruction of gallbladder | CPT/HCPCS: 17110; 99213 ==